=== PATIENT | female | born 1990 ===

== ENCOUNTER 2017-05-20 15:20 | Emergency (ER) | payer OTHER ==
[2017-05-20 15:36] VITALS: BP 119/77; PULSE 80; RESP 16; TEMP 98.7; O2SAT 100
--- NOTE | 2017-05-20 16:51 | ED PDOC ---
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 Patient reports drooling at night and mild dyspnea, but denies any cough. Patient offers no other medical complaints at this time. PMD: none provided Past Medical History Reviewed: Historical Data, Nursing Documentation, Vital Signs Vital Signs: Last Vital Signs Temp 98.7 F 05/20/17 15:33 Pulse 80 05/20/17 15:33 Resp 16 05/20/17 15:33 BP 119/77 05/20/17 15:33 Pulse Ox 100 05/20/17 16:59 - Medical History PMH: No Chronic Diseases - Surgical History Surgical History: No Surg Hx - Family History Family History: States: Unknown Family Hx - Immunization History Hx Tetanus Toxoid Vaccination: No Hx Influenza Vaccination: No Hx Pneumococcal Vaccination: No - Home Medications Home Medications: Ambulatory Orders Medication Instructions Recorded Naproxen [Naprosyn] 1 tab PO BID PRN #25 tab 07/18/16 Polyethylene Glycol 3350 [Miralax] 17 gm PO DAILY #270 ml 07/18/16 Amoxicillin/Clavulanate [Augmentin 1 tab PO BID #20 tab 05/20/17 875 MG-125 MG] Lidocaine 2% Viscous 5 ml MM QID #100 ml 05/20/17 - Allergies Allergies/Adverse Reactions: Allergies Allergy/AdvReac Type Severity Reaction Status Date / Time No Known Allergies Allergy Unverified 07/17/16 21:33 Review of Systems ROS Statement: Except As Marked, All Systems Reviewed And Found Negative ENT: Positive for: Throat Pain, Throat Swelling (reports inflamed tonsils) Respiratory: Positive for: Other (mild dyspnea). Negative for: Cough Physical Exam - Reviewed Nursing Documentation Reviewed: Yes Vital Signs Reviewed: Yes - Physical Exam Appears: Positive for: Non-toxic, No Acute Distress Skin: Positive for: Normal Color Eye Exam: Positive for: Normal appearance ENT: Positive for: Pharynx Is (erythematous bilaterally with mild inflammation, uvula is centerline, non-edematous), Other ((-) trismus, (-) abscess, (-) difficulty swallowing own production of saliva). Negative for: Tonsillar Exudate Neck: Positive for: Normal ((-) enlarged cervical nodes), Painless ROM, Supple Respiratory: Positive for: Other (airways open). Negative for: Respiratory Distress Extremity: Positive for: Normal ROM. Negative for: Deformity, Swelling Neurologic/Psych: Positive for: Alert, Oriented. Negative for: Motor/Sensory Deficits - ECG O2 Sat by Pulse Oximetry: 100 (RA) Pulse Ox Interpretation: Normal Medical Decision Making Medical Decision Making: Time: 16:48 Plan: --Lidocaine 2% Viscous 15 ml PO Scribe Attestation: Documented by Sherly Pichardo, acting as a scribe for Wojciech Mariscal PA-C Provider Scribe Attestation: All medical record entries made by the Scribe were at my direction and personally dictated by me. I have reviewed the chart and agree that the record accurately reflects my personal performance of the history, physical exam, medical decision making, and the department course for this patient. I have also personally directed, reviewed, and agree with the discharge instructions and disposition. Disposition - Clinical Impression Clinical Impression: Acute pharyngitis Doctor Will See Patient In The: Office Counseled Patient/Family Regarding: Diagnosis, Need For Followup, Rx Given - Disposition Referrals: [facility] [Outside] Disposition: Routine/Home Disposition Time: 16:55 Condition: GOOD Prescriptions: Amoxicillin/Clavulanate [Augmentin 875 MG-125 MG] 1 tab PO BID #20 tab Lidocaine 2% Viscous 5 ml MM QID #100 ml Instructions: Sore Throat in Adults, Sore Throat, Adult (DC) Forms: [employer] ([place]ovenian), [facility] ED School/Work Excuse Print Language: PORTUGUESE
== END 2017-05-20 17:47 | disposition home or self-care (01) ==
LOC: H.ER 15:20
DX: J02.9 Acute pharyngitis, unspecified (principal)